=== PATIENT | female | born 1960 | race Caucasian/White ===

== ENCOUNTER 2021-03-20 21:38 | Emergency (ER) | payer OTHER ==
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
--- NOTE | 2021-03-20 23:42 | CRLCT ---
For Patients: As a result of the Cures Act, medical imaging exams and procedure reports are released immediately into your electronic medical record. You may view this report before your referring provider. If you have questions, please contact your health care provider. INDICATION: Pain in cervical spine and across her chest TECHNIQUE: CT cervical spine without i.v. contrast. Coronal and sagittal reformats were obtained. COMPARISON: None FINDINGS: Alignment: Unremarkable. Bone: No acute fractures or aggressive bone lesions are identified. Disc: There are degenerative disc disease noted at C5-6 and C6-7. Scattered facet osteoarthritis is noted bilaterally. Soft tissue: There are 2 soft tissue nodules present deep to the left sternocleidomastoid muscle with the largest measuring 1 cm and mildly hyperdense in appearance. Surrounding infiltration of the adjacent fat is seen. The visualized lung apices and mediastinum are unremarkable. IMPRESSIONS: 1. No acute osseous injuries are identified. 2. There are 2 soft tissue nodules present deep to the left sternocleidomastoid muscle with the largest measuring 1 cm and mildly hyperdense in appearance. Surrounding infiltration of the adjacent fat is seen. In the setting of trauma, hematoma should be considered. In the absence of trauma, adenopathy is favored and further evaluation with biopsy may be warranted. Dictated by Clifford Mcmullen MD @ 03/20/2021 11:40:18 PM Please note that all CT scans at this facility use dose modulation, iterative reconstruction, and/or weight-based dosing when appropriate to reduce radiation dose to as low as reasonably achievable. Dictated by: Clifford Mcmullen MD @ 03/20/2021 23:40:24 (Electronically Signed)
== END 2021-03-21 01:31 | disposition home or self-care (01) ==
LOC: JP.ED 21:38
DX: S20.219A Contusion of unspecified front wall of thorax, initial encounter (principal); S00.81XA Abrasion of other part of head, initial encounter; M62.838 Other muscle spasm; X58.XXXA Exposure to other specified factors, initial encounter
CPT/HCPCS: 71250; 72125; 93005; 99285-25